=== PATIENT | female | born 2000 | race Two or more races ===

== ENCOUNTER 2024-09-06 17:52 | Emergency (ER) | payer OTHER ==
[~2024-09-06] VITALS: Ht 160 cm; Wt 61.2 kg
[2024-09-06] MEDS ORDERED: CEFTRIAXONE SODIUM 1,000 MG VIAL IM STA (21:15)
[2024-09-06] MEDS ORDERED: KETOROLAC TROMETHAMINE 30 MG VIAL IM STA (21:16)
[2024-09-06] MEDS ORDERED: CEFTRIAXONE SODIUM 1,000 MG VIAL ONE (21:18)
[2024-09-06] MEDS ORDERED: KETOROLAC TROMETHAMINE 30 MG VIAL ONE (21:18)
[2024-09-06] MEDS ORDERED: LIDOCAINE HCL 1% 10ML VIAL ONE (21:18)
== END 2024-09-06 21:53 | disposition home or self-care (01) ==
LOC: ER 18:13
DX: H60.90 Unspecified otitis externa, unspecified ear (principal); H61.20 Impacted cerumen, unspecified ear